=== PATIENT | male | born 1960 | race Caucasian/White ===

== ENCOUNTER → 2021-02-27 | Outpatient (CLI) | payer BC ==
--- NOTE | 2021-02-27 14:36 | RAD ---
MR#: [id number] Date of Study: 02/27/2021 Ordering Physician: THOMAS MATTHEWS, Referring Physician: AUSTIN BLANCO Tech: RT Jorge Bender) (N) APPROVED REPORT Test Type: Exercise Stress Nurse/Tech: RT Yulia (Maya) (N) Test Indications: palpitations, chest pain Cardiac History: none Medications: see EHR Medical History: hypertension, smoker Resting ECG: sinus rhythm Resting Heart Rate: 61 bpm Resting Blood Pressure: 154/81mmHg Pretest Chest Pain: None Nurse/Tech Notes Consent: The procedure was explained to the patient in lay terms. Informed consent was witnessed. Matt eout was entered into [employer]. History and Stress Test performed by RT Yulia (Maya) (N) POST EXERCISE Reason for Termination: Fatigue Target HR: Yes Max HR: 143 bpm 90% of Maximum Predicted HR: 159 bpm Exercise duration: 7:25 min:sec, 3 Stage Exercise capacity: 10METs Max Blood Pressure: 192/61mmHg INTERPRETATION Stress EKG Conclusion: The resting EKG shows a sinus rhythm with mild nonspecific ST T wave changes. The stress EKG shows no significant changes from baseline. No EKG evidence of stress-induced ischemia. Imaging Protocol IMAGE PROTOCOL: Rest Tc-99m/stress Tc-99m 1 day Rest: Stress: Viability: Radiopharm.Tc99m [id number] Sestamibi Dose10.1mCi 32.4mCi Duration 15min. 10min. Img Date 02/27/2021 02/27/2021 Inj-Img Flgs25phs. 60min. Post-Injection Exercise: 1 minute Rest Admin Site:IV - Right AntecubitalAdministrator: RT Yulia (Maya)(N) Stress Admin Site: IV - Right AntecubitalAdministrator: RT Jorge Bender)(N) STRESS DATA End Diast. Vol.122.0mlAv. Heart Rate66.0bpm End Syst. Vol.42.0mlCO Index BSA0.0L/min Myocardial Vlga150.0gEject. Mbhrancn39.0% Stress Rates Pk. Fill Rate2.77EDV/secLVtime Pk. Fill 123.46msec Pk. Empty Rate3.81ESV/secLVtime Pk. Kplxm417.95msec /3 Pk. Fill1.76EDV/sec Stress Scores Regional WT0.00Summed WT0.00 Regional WM0.00Summed WM0.00 LV Perfusion The stress scans showed no significant defects. The rest scans showed no significant defects. Nuclear imaging shows no reversible ischemia or infarct. Wall Motion LV systolic function is intact with an ejection fraction of 61% and no regional wall motion abnormali ties. LV Perf. Quant 17 Seg. SSS0.00 17 Seg. SRS0.00 17 Seg. SDS0.00 Stress Defect Extent (% LAD)0.00Rest Defect Extent (% LAD)0.00Rev. Defect Extent (% LAD)0.00 Stress Defect Extent (% LCX) 0.00Rest Defect Extent (% LCX)0.00Rev. Defect Extent (% LCX)0.00 Stress Defect Extent (% RCA)0.00Rest Defect Extent (% RCA)0.00Rev. Defect Extent (% RCA)0.00 Stress Defect Extent (% ELYSE)0.00Rest Defect Extent (% ELYSE)0.00Rev. Defect Extent (% ELYSE)0.00 Conclusion 1. Good exercise tolerance with the patient walking for 7 minutes and 25 seconds on a Reynold protocol. 2. No EKG evidence of stress-induced ischemia. 3. Nuclear imaging shows no reversible ischemia or infarct. 4. Normal LV systolic function with ejection fraction of 61%. 5. Low risk treadmill nuclear stress test. Signed by : Thomas Matthews MD Electronically Approved : 02/27/2021 14:36:03
== END ==
LOC: NM 07:56
PROVIDERS: ATTEND Internal Medicine Cardiovascular Disease
DX: R07.9 Chest pain, unspecified (principal); R00.2 Palpitations
CPT/HCPCS: 78452; 93017; A9500